=== PATIENT | male | born 1975 | race Caucasian/White ===

== ENCOUNTER → 2017-10-09 | Outpatient (REF) | payer OTHER ==
[2017-10-09 18:57] LABS: PLATELET COUNT, AUTOMATED 133 K/uL (150-450)
== END ==
PROVIDERS: ATTEND Nurse Practitioner Family
DX: R10.9 Unspecified abdominal pain (principal)
CPT/HCPCS: 82040; 82247; 82310; 82374; 82435; 82565; 82947; 84075; 84132; 84155; 84295; 84450; 84460; 84520; 85025

== ENCOUNTER 2017-10-15 10:56 | Emergency (ER) | payer OTHER ==
[2017-10-15] MEDS ORDERED: TAMS0.4C25 PO ×2 (11:04→12:32)
--- NOTE | 2017-10-15 11:06 | ER Report ---
History and Physical Time Seen By MD: 11:06 Hx. of Stated Complaint: Pt dx with kidney stones at urgent care 7 days ago. Pain meds insufficient. Pt does not think he has passed a stone. No reported fevers. HPI/ROS CHIEF COMPLAINT: Pelvic pain HISTORY OF PRESENT ILLNESS: 42-year-old male patient presents to emergency room with complaint of pelvic pain. Patient states this been going on for the past 7 days. He states it feels very similar to last time it kidney stones. He states that he was seen at the urgent care. He states that they thought that it was likely kidney stone and sent him home with Flomax. He states that he is not have any improvement in his pain. He denies having any nausea, vomiting or diarrhea. He states he is not taking any other medication for this. He states that he is able to eat and drink without any difficulties. She sees I had any changes in his urinary output. REVIEW OF SYSTEMS: Respiratory: No cough, no dyspnea. Cardiovascular: No chest pain, no palpitations. Gastrointestinal: No vomiting, no abdominal pain. Musculoskeletal: No back pain. Allergies: Coded Allergies: No Known Drug Allergies (Unverified , 02/21/15) Home Meds Active Scripts Ketorolac Tromethamine (KETOROLAC TROMETHAMINE) 10 Mg Tab, 10 MG PO Q6H, #20 TAB Prov:AMAURIDELIA [facility] 10/15/17 Tamsulosin Hcl (FLOMAX) 0.4 Mg Cap.er.24h, 0.4 MG PO DAILY, #7 CAP Prov:AMAURIDELIA [facility] 10/15/17 Hydrocodone Bit/Acetaminophen (HYDROCODON-ACETAMINOPHEN 5-325) 1 Each Tablet, 1 EACH PO Q4-6H Y for PAIN, #12 TAB Prov:DELIA BAUGH [facility] 10/15/17 Reported Medications Tamsulosin Hcl (FLOMAX) 0.4 Mg Cap.er.24h, 0.4 MG PO, CAP 10/15/17 Past Medical/Surgical History Patient has a past medical history of kidney stones, sutures. Patient denies any surgical history. Reviewed Nurses Notes: Yes Hx Smoking: No Smoking Status: Never Smoker Hx Substance Use Disorder: No Hx Alcohol Use: No Constitutional Vital Sign - Last 24 Hours 10/15/17 10/15/17 10/15/17 10/15/17 11:01 11:02 11:06 11:11 Temp 97.8 Pulse 65 58 66 Resp 20 B/P (MAP) 126/84 126/84 (98) Pulse Ox 92 93 92 O2 Delivery Room Air 10/15/17 10/15/17 10/15/17 10/15/17 11:16 11:26 11:31 11:36 Pulse 65 ? Pulse Ox 93 93 10/15/17 10/15/17 10/15/17 10/15/17 11:41 11:44 11:51 11:56 Pulse 61 59 62 B/P (MAP) 109/72 (84) Pulse Ox 93 93 93 10/15/17 10/15/17 10/15/17 10/15/17 12:00 12:05 12:10 12:15 Pulse 58 67 59 B/P (MAP) 109/76 (87) Pulse Ox 94 93 92 10/15/17 10/15/17 10/15/17 10/15/17 12:20 12:25 12:30 12:35 Pulse 61 54 56 B/P (MAP) 105/73 (84) Pulse Ox 92 95 92 Intake and Output 10/15/17 10/15/17 10/16/17 15:00 23:00 07:00 Intake Total 1000 ml Balance 1000 ml Physical Exam General Appearance: The patient is alert, has no immediate need for airway protection and no current signs of toxicity. ENT: Tympanic membranes are pearly-morgan, auditory canals are patent, mucous membranes are moist. Respiratory: Chest is non tender, lungs are clear to auscultation. Cardiac: regular rate and rhythm Gastrointestinal: Abdomen is soft and non tender, no masses, bowel sounds normal. Rectal exam was performed, patient had no tenderness to the prostate. The prostate itself was firm. Musculoskeletal: Neck: Neck is supple and non tender. Extremities have full range of motion and are non tender. Skin: No rashes or lesions. DIFFERENTIAL DIAGNOSIS: After history and physical exam differential diagnosis was considered for kidney stone, urinary tract infection, sexually transmitted infection. Medical Decision Making Data Points Result Diagram: 10/15/17 1105 10/15/17 1105 Laboratory Hematology Test 10/15/17 11:01 10/15/17 11:05 Urine Color Yellow Urine Clarity Clear Urine pH 5.0 pH (4.8-9.5) Urine Specific [place] 1.021 Urine Protein Negative mg/dL (NEGATIVE) Urine Glucose (UA) Negative mg/dL (NEGATIVE) Urine Ketones Negative mg/dL (NEGATIVE) Urine Blood Moderate (NEGATIVE) Urine Nitrite Negative (NEGATIVE) Urine Bilirubin Negative (NEGATIVE) Urine Urobilinogen Negative mg/dL (0.2-1.9) Urine Leukocyte Esterase Negative (NEGATIVE) Urine RBC 50 /HPF (0-2/HPF) Urine WBC 5 /HPF (0-5/HPF) Urine Squamous Epithelial Cells Few /LPF (</=FEW) Urine Bacteria Negative /HPF (NONE-FEW) Urine Mucus Few /HPF (NONE-FEW) Red Blood Count 5.58 M/uL (4.00-5.60) Mean Corpuscular Volume 84.2 fL (80.0-96.0) Mean Corpuscular Hemoglobin 29.0 pg (26.0-33.0) Mean Corpuscular Hemoglobin Concent 34.5 g/dL (32.0-36.0) Red Cell Distribution Width 12.7 % (11.5-14.5) Mean Platelet Volume 8.1 fL (7.2-11.1) Neutrophils (%) (Auto) 53.3 % (39.4-72.5) Lymphocytes (%) (Auto) 34.5 % (17.6-49.6) Monocytes (%) (Auto) 9.1 % (4.1-12.4) Eosinophils (%) (Auto) 2.3 % (0.4-6.7) Basophils (%) (Auto) 0.8 % (0.3-1.4) Nucleated RBC Relative Count (auto) 0.2 /100WBC Neutrophils # (Auto) 2.5 K/uL (2.0-7.4) Lymphocytes # (Auto) 1.6 K/uL (1.3-3.6) Monocytes # (Auto) 0.4 K/uL (0.3-1.0) Eosinophils # (Auto) 0.1 K/uL (0.0-0.5) Basophils # (Auto) 0.0 K/uL (0.0-0.1) Nucleated RBC Absolute Count (auto) 0.01 K/uL Erythrocyte Sedimentation Rate 1 mm/HOUR (0-15) Sodium Level 140 mmol/L (137-145) Potassium Level 3.9 mmol/L (3.5-5.0) Chloride Level 105 mmol/L (98-107) Carbon Dioxide Level 25 mmol/L (22-30) Blood Urea Nitrogen 10 mg/dl (9-21) Creatinine 1.00 mg/dl (0.66-1.25) Glomerular Filtration Rate Calc > 60.0 Random Glucose 85 mg/dl (75-110) Calcium Level 9.0 mg/dl (8.4-10.2) Total Bilirubin 0.7 mg/dl (0.2-1.3) Aspartate Amino Transf (AST/SGOT) 21 U/L (0-35) Alanine Aminotransferase (ALT/SGPT) 33 U/L (0-56) Alkaline Phosphatase 82 U/L (0-126) C-Reactive Protein < 0.5 mg/dl (<1.0) Total Protein 7.3 gm/dl (6.3-8.2) Albumin 4.2 g/dl (3.5-5.0) Chemistry Test 10/15/17 11:01 10/15/17 11:05 Urine Color Yellow Urine Clarity Clear Urine pH 5.0 pH (4.8-9.5) Urine Specific [place] 1.021 Urine Protein Negative mg/dL (NEGATIVE) Urine Glucose (UA) Negative mg/dL (NEGATIVE) Urine Ketones Negative mg/dL (NEGATIVE) Urine Blood Moderate (NEGATIVE) Urine Nitrite Negative (NEGATIVE) Urine Bilirubin Negative (NEGATIVE) Urine Urobilinogen Negative mg/dL (0.2-1.9) Urine Leukocyte Esterase Negative (NEGATIVE) Urine RBC 50 /HPF (0-2/HPF) Urine WBC 5 /HPF (0-5/HPF) Urine Squamous Epithelial Cells Few /LPF (</=FEW) Urine Bacteria Negative /HPF (NONE-FEW) Urine Mucus Few /HPF (NONE-FEW) White Blood Count 4.8 k/uL (4.5-11.0) Red Blood Count 5.58 M/uL (4.00-5.60) Hemoglobin 16.2 g/dL (14.0-18.0) Hematocrit 46.9 % (42.0-52.0) Mean Corpuscular Volume 84.2 fL (80.0-96.0) Mean Corpuscular Hemoglobin 29.0 pg (26.0-33.0) Mean Corpuscular Hemoglobin Concent 34.5 g/dL (32.0-36.0) Red Cell Distribution Width 12.7 % (11.5-14.5) Platelet Count 223 K/uL (150-450) Mean Platelet Volume 8.1 fL (7.2-11.1) Neutrophils (%) (Auto) 53.3 % (39.4-72.5) Lymphocytes (%) (Auto) 34.5 % (17.6-49.6) Monocytes (%) (Auto) 9.1 % (4.1-12.4) Eosinophils (%) (Auto) 2.3 % (0.4-6.7) Basophils (%) (Auto) 0.8 % (0.3-1.4) Nucleated RBC Relative Count (auto) 0.2 /100WBC Neutrophils # (Auto) 2.5 K/uL (2.0-7.4) Lymphocytes # (Auto) 1.6 K/uL (1.3-3.6) Monocytes # (Auto) 0.4 K/uL (0.3-1.0) Eosinophils # (Auto) 0.1 K/uL (0.0-0.5) Basophils # (Auto) 0.0 K/uL (0.0-0.1) Nucleated RBC Absolute Count (auto) 0.01 K/uL Erythrocyte Sedimentation Rate 1 mm/HOUR (0-15) Glomerular Filtration Rate Calc > 60.0 Calcium Level 9.0 mg/dl (8.4-10.2) Total Bilirubin 0.7 mg/dl (0.2-1.3) Aspartate Amino Transf (AST/SGOT) 21 U/L (0-35) Alanine Aminotransferase (ALT/SGPT) 33 U/L (0-56) Alkaline Phosphatase 82 U/L (0-126) C-Reactive Protein < 0.5 mg/dl (<1.0) Total Protein 7.3 gm/dl (6.3-8.2) Albumin 4.2 g/dl (3.5-5.0) Urinalysis Test 10/15/17 11:01 Urine Color Yellow Urine Clarity Clear Urine pH 5.0 pH (4.8-9.5) Urine Specific [place] 1.021 Urine Protein Negative mg/dL (NEGATIVE) Urine Glucose (UA) Negative mg/dL (NEGATIVE) Urine Ketones Negative mg/dL (NEGATIVE) Urine Blood Moderate (NEGATIVE) Urine Nitrite Negative (NEGATIVE) Urine Bilirubin Negative (NEGATIVE) Urine Urobilinogen Negative mg/dL (0.2-1.9) Urine Leukocyte Esterase Negative (NEGATIVE) Urine RBC 50 /HPF (0-2/HPF) Urine WBC 5 /HPF (0-5/HPF) Urine Squamous Epithelial Cells Few /LPF (</=FEW) Urine Bacteria Negative /HPF (NONE-FEW) Urine Mucus Few /HPF (NONE-FEW) EKG/Imaging Imaging ABDOMEN/PELVIS WITH CONTRAST Provided history: pelvic pain Additional pertinent history: none TECHNIQUE: Spiral scan was obtained from the lower chest through the symphysis with intravenous contrast Contrast dose: 75 mL Isovue 370 intravenously. Source images were reformatted in the coronal and sagittal planes. Additional series performed today: none One of the following dose optimization techniques was utilized in the performance of this exam: Automated exposure control; adjustment of the mA and/ or kV according to the patient's size; or use of an iterative reconstruction technique. Specific details can be referenced in the facility's radiology CT exam operational policy. COMPARISON STUDIES: none FINDINGS: Lower chest: There are 2 subpleural micronodules, noncalcified lateral right lower lobe both on image 6, the larger measuring 3 x 3.7 mm, average diameter 3.4 m. Liver/biliary: Negative Pancreas: Negative Spleen: Negative Adrenal glands: Negative Kidneys / ureters / bladder / genitourinary / retroperitoneum: There is mild right pelviectasis and there is columning of the right ureter to the UVJ where there is a stone impacted deep in the bladder wall measuring 2.3 x 4.7 x 3.5 mm. There is moderate edema in the bladder wall at the level of the right UVJ. There are several punctate additional medullary calcifications in both kidneys, none greater than a millimeter in diameter. Benign cyst noted in the lower pole right kidney measuring 11 mm. No suspect cortical lesions. Bowel / peritoneum / mesenteries: Negative. Lipomatosis of the ileocecal valve noted, a benign variation of normal. Normal appendix. Vessels: negative Lymph nodes: negative Body wall: negative Bones: negative IMPRESSION: 1. Partially obstructing stone at the right UVJ, deep of bladder wall with transverse diameter 2.3 x 4.7 mm. 2. Additional punctate medullary calcifications without definable measurable stones at this time. 3. There are 2 noncalcified subpleural micronodules right lung base that are very likely benign. Fleischner Society recommendations for followup multiple pulmonary nodules are: Nodule size <6 mm: Low-risk patient: No routine follow-up High risk patient: Optional CT at 12 months. Report Dictated By: Kevin Whelan MD at 10/15/2017 11:51 AM Report E-Signed By: Kevin Whelan MD at 10/15/2017 12:01 PM ED Course/Re-evaluation ED Course Patient was admitted to exam room, history and physical were obtained. Differential diagnoses were considered. On examination patient had no acute findings. Was complaining of pain behind his penis. I did a prostate exam which was negative. A CBC, CMP, urinalysis obtained. The CBC and CMP were unremarkable , the urinalysis did show moderate amounts of blood, 26 red blood cells per high -power field. CT scan of abdomen and pelvis was done which showed a 4 mm kidney stone at the UVJ, it appears to be just about to drop into the bladder. I discussed this with the patient. We will go ahead and place him on a limited supply of pain medication, Toradol, which seemed to help here in the emergency room, and another week of Flomax. The patient verbalized understanding and agreement with plan. If he does not have any improvement by Friday would like and follow-up with urology. Decision to Disposition Date: Oct 15, 2017 Decision to Disposition Time: 12:33 Depart Departure Latest Vital Signs Vital Signs Date Time Temp Pulse Resp B/P (MAP) Pulse Ox O2 Delivery O2 Flow Rate FiO2 10/15/17 12:35 56 92 10/15/17 12:20 105/73 (84) 10/15/17 11:01 97.8 20 Room Air Impression: Primary Impression: Kidney stone on right side Condition: Improved Disposition: HOME OR SELF-CARE Referrals: GIANCARLO RINCON MD, LYLE MD New Scripts Ketorolac Tromethamine (KETOROLAC TROMETHAMINE) 10 Mg Tab 10 MG PO Q6H, #20 TAB Prov: DELIA BAUGH 10/15/17 Tamsulosin Hcl (FLOMAX) 0.4 Mg Cap.er.24h 0.4 MG PO DAILY, #7 CAP Prov: DELIA BAUGH 10/15/17 Hydrocodone Bit/Acetaminophen (HYDROCODON-ACETAMINOPHEN 5-325) 1 Each Tablet 1 EACH PO Q4-6H Y for PAIN, #12 TAB Prov: DELIA BAUGH 10/15/17 Patient Instructions: Kidney Stones (ED) Additional Instructions: Increase fluid intake. Get plenty of rest. Limit activity by pain. Follow up with your primary care provider in the next week. If there is no improvement in the next 5 days follow up with a urologist. Return to the ER if condition worsens. DELIA BAUGH Oct 15, 2017 11:06
[2017-10-15] MEDS ORDERED: NS(*) 0.9% 1000 ML BAG 1,000 ML IV ONE (11:14)
[2017-10-15] MEDS ORDERED: KETOROLAC 30 MG/ML VIAL IVP ONE (11:15)
[2017-10-15 11:27] LABS: PLATELET COUNT, AUTOMATED 223 K/uL (150-450)
[2017-10-15] MEDS ORDERED: NS 0.9% 20 ML SDV 60 ML ONE (11:30)
[2017-10-15] MEDS ORDERED: IOPAMIDOL 76% 75 ML INFUS BTL 75 ML ONE (11:30)
--- NOTE | 2017-10-15 12:07 | RADIOLOGY IMAGING REPORT ---
FACILITY: [facility] - [place] PATIENT NAME: Zack Barrera : 1975 MR: [id number] V: [id number] EXAM DATE: ORDERING PHYSICIAN: DELIA BAUGH TECHNOLOGIST: Location: [facility] - [place] Patient: Zack Barrera : 1975 Visit/Account:[id number] Date of Sevice: 10/15/2017 ABDOMEN/PELVIS WITH CONTRAST Provided history: pelvic pain Additional pertinent history: none TECHNIQUE: Spiral scan was obtained from the lower chest through the symphysis with intravenous cont rast Contrast dose: 75 mL Isovue 370 intravenously. Source images were reformatted in the coronal and sagittal planes. Additional series performed today: none One of the following dose optimization techniques was utilized in the performance of this exam: Autom ated exposure control; adjustment of the mA and/or kV according to the patient's size; or use of an i terative reconstruction technique. Specific details can be referenced in the facility's radiology CT exam operational policy. COMPARISON STUDIES: none FINDINGS: Lower chest: There are 2 subpleural micronodules, noncalcified lateral right lower lobe both on image 6, the larger measuring 3 x 3.7 mm, average diameter 3.4 m. Liver/biliary: Negative Pancreas: Negative Spleen: Negative Adrenal glands: Negative Kidneys / ureters / bladder / genitourinary / retroperitoneum: There is mild right pelviectasis and t here is columning of the right ureter to the UVJ where there is a stone impacted deep in the bladder wall measuring 2.3 x 4.7 x 3.5 mm. There is moderate edema in the bladder wall at the level of the r ight UVJ. There are several punctate additional medullary calcifications in both kidneys, none greater than a m illimeter in diameter. Benign cyst noted in the lower pole right kidney measuring 11 mm. No suspect cortical lesions. Bowel / peritoneum / mesenteries: Negative. Lipomatosis of the ileocecal valve noted, a benign varia tion of normal. Normal appendix. Vessels: negative Lymph nodes: negative Body wall: negative Bones: negative IMPRESSION: 1. Partially obstructing stone at the right UVJ, deep of bladder wall with transverse diameter 2.3 x 4.7 mm. 2. Additional punctate medullary calcifications without definable measurable stones at this time. 3. There are 2 noncalcified subpleural micronodules right lung base that are very likely benign. Fleischner Society recommendations for followup multiple pulmonary nodules are: Nodule size <6 mm: Low-risk patient: No routine follow-up High risk patient: Optional CT at 12 months. Report Dictated By: Kevin Whelan MD at 10/15/2017 11:51 AM Report E-Signed By: Kevin Whelan MD at 10/15/2017 12:01 PM WSN:[id number]
[2017-10-15 12:20] VITALS: BP 105/73
[2017-10-15] MEDS ORDERED: HYDR-385 PO (12:32)
[2017-10-15] MEDS ORDERED: KET10 PO (12:32)
== END 2017-10-15 12:42 | disposition home or self-care (01) ==
LOC: ER 11:10
DX: N20.0 Calculus of kidney (principal)
CPT/HCPCS: 74177; 81001; 85025; 85651; 86140; 96361; 96374; 99284; J1885; J7030; J7050; Q9967; 82040; 82247; 82310; 82374; 82435; 82565; 82947; 84075; 84132; 84155; 84295; 84450; 84460; 84520